=== PATIENT | female | born 1995 | race Caucasian/White ===

== ENCOUNTER 2024-09-04 18:49 | Emergency (ER) | payer OTHER ==
[~2024-09-04] VITALS: Ht 160 cm; Wt 65.8 kg
[2024-09-04 21:49] VITALS: BP 110/71; TEMP 98; O2SAT 98
== END 2024-09-04 21:50 | disposition home or self-care (01) ==
LOC: ER 18:49
DX: M79.604 Pain in right leg (principal); M79.605 Pain in left leg; R25.2 Cramp and spasm; Z86.718 Personal history of other venous thrombosis and embolism; Z86.711 Personal history of pulmonary embolism; Z60.2 Problems related to living alone
CPT/HCPCS: 93970-TC